=== PATIENT | female | born 1970 | race Caucasian/White ===

== ENCOUNTER 2020-12-03 13:35 | Emergency (ER) | payer OTHER ==
[~2020-12-03] VITALS: Ht 165.1 cm; Wt 74.8 kg
[~2020-12-03 13:35] MED LIST: NOHOMEMEDICATIONS; PERCOCET 5-3251 EACH PO
[2020-12-03] MEDS ORDERED: NEURONTIN 300M300 M2 PO (13:48)
--- NOTE | 2020-12-03 15:35 | EKG ---
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: : 1970 Requested By: Von Ku Order Number: [id number] MD: Harvinder Ricardo Measurements Intervals [place] Rate: 103 P: -12 UT: 129 QRS: -23 QRSD: 95 T: 13 QT: 345 QTc: 452 Interpretive Statements Sinus tachycardia Inferior infarct, old Probable anteroseptal infarct, old No previous ECG available for comparison Electronically Signed On 12-03-2020 15:35:07 CDT by Harvinder Ricardo [email or web address] <ELECTRONICALLY SIGNED> By: Harvinder Ricardo MD, [facility] 12/03/20 1535 1520 19 Harvinder Ricardo MD, [facility] /EPI
[2020-12-03] MEDS ORDERED: MEDROLDOSEPACK PO (15:51)
[2020-12-03 15:58] VITALS: BP 142/72
== END 2020-12-03 15:58 | disposition home or self-care (01) ==
LOC: M.ERS 13:35
DX: M25.512 Pain in left shoulder (principal); M79.7 Fibromyalgia; Z90.710 Acquired absence of both cervix and uterus; Z88.0 Allergy status to penicillin; Z88.1 Allergy status to other antibiotic agents